=== PATIENT | male | born 1960 ===

== ENCOUNTER 2020-10-04 08:10 | Day surgery (SDC) | payer OTHER ==
[~2020-10-04 08:10] MED LIST: ATORVASTATIN CA20 MG PO; CLONAZEPAM1 MG PO; CYCLOBEN PO; MELATONIN10 MG PO; SONATA10 MG PO; TESTONE CI200 MG/1 M IM; ULTRAM50 MG PO; UROXATRAL10 MG PO
[2020-10-04] MEDS ORDERED: PERCOCET 5-3251 EACH PO (13:38)
== END 2020-10-04 17:30 | disposition home or self-care (01) ==
LOC: CIR.AMB 08:10
PROVIDERS: ATTEND Surgery
DX: K62.82 Dysplasia of anus (principal)